=== PATIENT | male | born 1960 | race Caucasian/White ===

== ENCOUNTER → 2016-11-06 | Outpatient (CLI) | payer OTHER | LOC: KOH-I 08:28 | DX: K74.60 Unspecified cirrhosis of liver (principal); R93.422 Abnormal radiologic findings on diagnostic imaging of left kidney; K76.0 Fatty (change of) liver, not elsewhere classified | CPT/HCPCS: 76700 ==

== ENCOUNTER → 2020-09-27 | Outpatient (CLI) | payer MEDICARE, OTHER | LOC: KOH-I 08:16 | DX: K74.69 Other cirrhosis of liver (principal) | CPT/HCPCS: 76705 ==

== ENCOUNTER → 2020-11-22 | Outpatient (CLI) | payer MEDICARE, OTHER | LOC: HEART 5 14:22 | DX: R55 Syncope and collapse (principal) ==

== ENCOUNTER → 2020-12-05 | Outpatient (CLI) | payer MEDICARE, OTHER | LOC: ECHO 09:00 | DX: R55 Syncope and collapse (principal); I08.0 Rheumatic disorders of both mitral and aortic valves; R93.1 Abnormal findings on diagnostic imaging of heart and coronary circulation | CPT/HCPCS: ECHO; 93306 ==

== ENCOUNTER → 2020-12-25 | Outpatient (CLI) | payer MEDICARE, OTHER | LOC: CATH 09:15 | DX: R55 Syncope and collapse (principal) ==

== ENCOUNTER 2021-03-30 12:49 | Emergency (ER) | payer MEDICARE, OTHER ==
[2021-03-30] MEDS ORDERED: BACTROBAN OINT22 GM EXT (16:10)
[2021-03-30] MEDS ORDERED: IBUPROFEN600 MG PO (16:10)
== END 2021-03-30 16:13 | disposition home or self-care (01) ==
LOC: ER1 12:49
DX: S61.011A Laceration without foreign body of right thumb without damage to nail, initial encounter (principal); W26.9XXA Contact with unspecified sharp object(s), initial encounter
CPT/HCPCS: 12001; 73130; 99283